=== PATIENT | male | born 1965 | race Caucasian/White ===

== ENCOUNTER 2016-09-29 06:19 | Emergency (ER) | payer MEDICARE, OTHER ==
--- NOTE | ~2016-09-29 | CT101 ---
[facility] A Service [facility] RADIOLOGY TEXT RESULTS PATIENT: MEJIA KENNEDY LOCATION: [facility] : 67 UNIT #: [id number] AGE: [address]: Chip Kim DO SEX: M ORDER DR: [id number] [address] [id number] [facility]. [place], [place] [address] [id number] MR#: [id number] Acc #: [id number] NAME: MEJIA KENNEDY : 1965 SEX: M STUDY DATE/TIME: 09/29/2016 9:40 UNIT: JOSR ROOM: STUDY DESCRIPTION: CT Maxillofacial Area Wo Cont Attending Physician: Chip Kim D.O. Ordering Physician: Chip Kim D.O. Primary Care Physician: Primary Care Physician No MEDICAL IMAGING REPORT This report is preliminary unless electronic signature is present EXAM Maxillofacial CT INDICATION Fall 2 days ago. Left eye pain. Loss of consciousness. Right forehead pain. TECHNIQUE Maxillofacial CT without contrast. Coronal and sagittal reconstructions were obtained. This CT exam was performed with one or more of the following radiation dose reduction techniques: automatic exposure control, adjustment of mA and/or kV according to patient size, and iterative reconstruction. COMPARISON CT head obtained the same day. FINDINGS There is some soft tissue swelling over the left side of the face and left zygoma. No underlying fracture. The mandible is unremarkable. The temporomandibular joints within normal limits. There is generalized poor dentition with multiple dental cavities. The paranasal sinuses are clear. Orbits are normal. IMPRESSION Soft tissue swelling over the left side of the face. No underlying fracture. No foreign body. Dictated by... Jermaine June M.D. [facility] A Service [facility] RADIOLOGY TEXT RESULTS PATIENT: MEJIA KENNEDY LOCATION: [facility] : 67 UNIT #: [id number] AGE: [address]: Chip Kim DO SEX: M ORDER DR: THIS IS AN ELECTRONICALLY VERIFIED REPORT Jermaine June M.D. at 09/29/2016 3:11 PM Hoa TD: 09/29/2016 12:32 JOB #: [id number] MEDICAL IMAGING REPORT Page 1 of 1 COPY
--- NOTE | ~2016-09-29 | CT71 ---
[facility] A Service of [facility] RADIOLOGY TEXT RESULTS PATIENT: MEJIA KENNEDY LOCATION: [facility] : 67 UNIT #: [id number] AGE: [address]: Chip Kim DO SEX: M ORDER DR: [id number] [facility] [address] [place], [place] [address] [id number] E MR#: [id number] Acc #: [id number] NAME: MEJIA KENNEDY : 1965 SEX: M STUDY DATE/TIME: 09/29/2016 9:40 UNIT: [facility] ROOM: STUDY DESCRIPTION: CT Head Wo Contrast Attending Physician: Chip Kim D.O. Ordering Physician: Chip Kim D.O. Primary Care Physician: Primary Care Physician No MEDICAL IMAGING REPORT This report is preliminary unless electronic signature is present EXAM CT scan of the head without contrast INDICATION Fall 2 days ago with loss of consciousness and continued pain in right forehead. TECHNIQUE This CT exam was performed with one or more of the following radiation dose reduction techniques: automatic exposure control, adjustment of mA and/or kV according to patient size, and iterative reconstruction. FINDINGS Axial noncontrast images were obtained from the skull base to the vertex. Ventricular size and configuration are normal. There is no evidence of acute infarct or hemorrhage. There are no extra-axial fluid collections. No mass lesion or mass effect is seen. There are no skull fractures. IMPRESSION Normal noncontrast head CT. Dictated by... Milton Duarte M.D. THIS IS AN ELECTRONICALLY VERIFIED REPORT Milton Duarte M.D. at 09/29/2016 1:26 PM Jacek TD: 09/29/2016 12:17 JOB #: [id number] MEDICAL IMAGING REPORT Page 1 of 1 COPY
[~2016-09-29 06:19] MED LIST: CYMBALTA PO
== END 2016-09-29 11:07 | disposition home or self-care (01) ==
LOC: CED 06:19
DX: S09.90XA Unspecified injury of head, initial encounter (principal); S01.81XA Laceration without foreign body of other part of head, initial encounter; S05.02XA Injury of conjunctiva and corneal abrasion without foreign body, left eye, initial encounter; X58.XXXA Exposure to other specified factors, initial encounter; Y92.488 Other paved roadways as the place of occurrence of the external cause
CPT/HCPCS: 70450; 70486; 99284